=== PATIENT | female | born 1975 | race African-American/Black ===

== ENCOUNTER 2019-09-22 19:07 | Emergency (ER) | payer OTHER ==
[~2019-09-22] VITALS: Ht 167.6 cm; Wt 54.0 kg
[2019-09-22] MEDS ORDERED: IBUPROFEN 600MG TABLET PO ONE (23:15)
[2019-09-23 00:58] VITALS: BP 132/79
== END 2019-09-23 00:58 | disposition home or self-care (01) ==
LOC: ER 19:07
DX: B34.9 Viral infection, unspecified (principal); J11.1 Influenza due to unidentified influenza virus with other respiratory manifestations
CPT/HCPCS: 81025; 87070; 87430; 87804; 99283; 99284

== ENCOUNTER 2019-09-26 20:08 | Emergency (ER) | payer OTHER ==
[~2019-09-26] VITALS: Ht 167.6 cm; Wt 56.0 kg
[2019-09-26 20:25] VITALS: BP 148/77
== END 2019-09-26 23:10 | disposition home or self-care (01) ==
LOC: ER 20:08
DX: J06.9 Acute upper respiratory infection, unspecified (principal)
CPT/HCPCS: 99282